=== PATIENT | male | born 1955 | race Caucasian/White ===

== ENCOUNTER 2021-06-07 13:30 | Outpatient (REF) | payer SELFPAY ==
--- NOTE | 2021-06-07 13:53 | MHC.AU.P13 ---
Hearing Instrument Maintenance Date of Visit: 06/07/21 Right Ear: Cobol Mainframe Developer: Phonak Model: AUDEO M50-13T Serial Number: [id number] Repair Warranty: 10/28/2022 Loss and Damage Warranty: 10/28/2022 Battery Size: 13 Color: SILVER CUBA Business Services Sales Representative: 2M Type of Dome: SMALL VENTED Type of Wax Guard: CERUSHIELD Dispensed By: [facility] Date of Fittin08/14/2019 Left Ear: Cobol Mainframe Developer: AUDEO Model: M50-13T Serial Number: [id number] Repair Warranty: 10/28/2022 Loss and Damage Warranty: 10/28/2022 Battery Size: 13 Color: SILVER CUBA Business Services Sales Representative: 2M Type of Dome: SMALL OPEN Type of Wax Guard: CERUSHIELD Dispensed By: [facility] Date of Fittin08/14/2019 Follow-Up Summary: Hearing aids brought in for cleaning. Hearing aids cleaned, wax guards replaced, small vented right dome and small open left dome replaced - both amplifying clearly. Recommendations: Recommendations: Hearing instrument follow-up or maintenance as needed. Diagnosis Code(s): Primary Diagnosis: H90.3 Bilateral Sensorineural Hearing Loss Signature: Provider: TERRY Martínez-HIS
== END 2021-06-07 13:31 | disposition home or self-care (01) ==
LOC: HO.HAP 13:30
PROVIDERS: Visit Provider Family Medicine
DX: Z13.89 Encounter for screening for other disorder (principal)

== ENCOUNTER 2023-01-26 10:49 | Outpatient (REF) | payer SELFPAY | END 2023-01-26 10:50 | disposition home or self-care (01) | LOC: HO.HAP 10:49 | PROVIDERS: Visit Provider Family Medicine | DX: Z13.89 Encounter for screening for other disorder (principal) ==

== ENCOUNTER 2023-01-27 12:28 | Outpatient (REF) | payer SELFPAY | END 2023-01-27 12:29 | disposition home or self-care (01) | LOC: HO.HAP 12:28 | PROVIDERS: Visit Provider Family Medicine | DX: Z46.1 Encounter for fitting and adjustment of hearing aid (principal); H90.3 Sensorineural hearing loss, bilateral | CPT/HCPCS: 92700 ==

== ENCOUNTER 2024-02-28 12:55 | Outpatient (REF) | payer SELFPAY ==
--- NOTE | 2024-02-28 14:51 | MHC.AU.HA3 ---
Hearing Instrument Follow-Up- Binaural Date of Visit: 02/28/24 Right Ear: Make, Model, Color, Serial Number: [id number] Prints And Drawings Curator Repair Warranty: 10/28/2022 Prints And Drawings Curator Loss and Damage Warranty: 10/28/2022 [facility] Service Plan: Battery Size: 13 Clinical Trial Specialist/Slim Tube: 2M Earmold/Dome/CShell/SlimTip: Type of Wax Guard: CERUSHIELD Dispensed By: [facility] Date of Fittin08/14/2019 Left Ear: Make, Model, Color, Serial Number: [id number] Prints And Drawings Curator Repair Warranty: 10/28/2022 [employer]s And Drawings Curator Loss and Damage Warranty: 10/28/2022 [facility] Service Plan: Battery Size: 13 Clinical Trial Specialist/Slim Tube: 2M Earmold/Dome/CShell/SlimTip: Type of Wax Guard: CERUSHIELD Dispensed By: [facility] Date of Fittin08/14/2019 Follow-Up Summary: Both aids dropped off. Right direct care worker is broken. Left is in need of cleaning. Cleaned and checked both aids, ran through dehumidifier. Replaced direct care worker right. Changed domes, tails, wax guards. Vacuumed drew ports. Listening check positive. Recommendations: Recommendations: Hearing instrument follow-up or maintenance as needed. Diagnosis Code(s): Primary Diagnosis: H90.3 Bilateral Sensorineural Hearing Loss Signature: Provider: Lokesh Gottlieb, CCC-A
== END 2024-02-28 12:56 | disposition home or self-care (01) ==
LOC: HO.HAP 12:55
PROVIDERS: Visit Provider Family Medicine
DX: Z46.1 Encounter for fitting and adjustment of hearing aid (principal); H90.3 Sensorineural hearing loss, bilateral
CPT/HCPCS: 92592; V5299

== ENCOUNTER 2024-04-09 09:34 | Outpatient (REF) | payer SELFPAY ==
--- NOTE | 2024-04-09 14:35 | MHC.AU.HA3 ---
Hearing Instrument Follow-Up- Binaural Date of Visit: 04/09/24 Right Ear: Pedro, Model, Color, Serial Number: Deb Landers [id number] SN: [id number] Color: Silver Gonsalez Tire Assembler Repair Warranty: 10/28/2022 Tire Assembler Loss and Damage Warranty: 10/28/2022 Battery Size: 13 Accounts Payable Representative/Slim Tube: 2M Earmold/Dome/CShell/SlimTip:Small vented dome with retention tail Type of Wax Guard: CeruShield Dispensed By: [facility] Date of Fittin08/14/2019 Left Ear: Pedro, Model, Color, Serial Number: Deb Landers [id number] SN: [id number] Color: Silver Gonsalez Tire Assembler Repair Warranty: 10/28/2022 Tire Assembler Loss and Damage Warranty: 10/28/2022 Battery Size: 13 Accounts Payable Representative/Slim Tube: 2M Earmold/Dome/CShell/SlimTip: Small open dome with retention tail Type of Wax Guard: CeruShield Dispensed By: [facility] Date of Fittin08/14/2019 Follow-Up Summary: Both hearing aids dropped off, reporting went through wash, left now has ticking sound. Confirmed via listening check. Did not resolve after cleaning, dehumidifier, and changing food safety scientist. Cleaned right hearing aid. Replaced dome, wax guard, retention tail. Vacuumed microphones. Ran through dehumidifier. Listening check demonstrated hearing aid amplifying clearly. Called Beau - Opted to send left hearing aid to [facility]. Quoted $330.00 due at chicken picker, which he approved. Sent left hearing aid to [facility]. He also inquired about programming adjustments as he does not perceive as much benefit as when first fit, especially from right hearing aid. Scheduled appointment 05/03/2024 at Beau's request to chicken picker left hearing aid from repair and make programming adjustments at that time. Also recommended updated hearing test as previous test is from 2019. Right hearing aid in Repair Drawer to hold until 05/03/2024 appointment. Recommendations: Patient will be contacted when materials have arrived. Diagnosis Code(s): Primary Diagnosis: H90.3 Bilateral Sensorineural Hearing Loss Signature: Provider: Lokesh Garcia, [facility]
== END 2024-04-09 09:35 | disposition home or self-care (01) ==
LOC: HO.HAP 09:34
PROVIDERS: Visit Provider Family Medicine
DX: Z13.89 Encounter for screening for other disorder (principal)

== ENCOUNTER 2024-04-10 09:11 | Outpatient (REF) | payer SELFPAY | END 2024-04-10 09:12 | disposition home or self-care (01) | LOC: HO.HAP 09:11 | PROVIDERS: Visit Provider Family Medicine | DX: Z13.89 Encounter for screening for other disorder (principal) ==

== ENCOUNTER 2024-05-03 07:56 | Outpatient (REF) | payer SELFPAY ==
--- NOTE | 2024-05-03 08:26 | MHC.AU.HA3 ---
Hearing Instrument Follow-Up- Binaural Date of Visit: 05/03/24 Right Ear: Pedro, Model, Color, Serial Number: Deb Landers [id number] SN: [id number] Color: Silver Gonsalez Earth Mover Repair Warranty: 10/28/2022 Earth Mover Loss and Damage Warranty: 10/28/2022 Battery Size: 13 Pensionholder Information Clerk/Slim Tube: 2M Earmold/Dome/CShell/SlimTip:Medium vented dome with retention tail Type of Wax Guard: CeruShield Dispensed By: [facility] Date of Fittin08/14/2019 Left Ear: Pedro, Model, Color, Serial Number: Deb Landers [id number] SN: [id number] Color: Silver Gonsalez Earth Mover Repair Warranty: 10/18/2024 Earth Mover Loss and Damage Warranty: 10/28/2022 Battery Size: 13 Pensionholder Information Clerk/Slim Tube: 2M Earmold/Dome/CShell/SlimTip: Small open dome with retention tail Type of Wax Guard: CeruShield Dispensed By: [facility] Date of Fittin08/14/2019 Follow-Up Summary: Picked up left repaired hearing aid. Reconnected to right hearing aid via [employer] software. Reran feedback analyzer as right feedback curve cutting out more amplification than left which may have been contributing to difference between ears as previously discussed. Changed to medium vented dome on right ear which improved feedback curve. Beau reported noticeable improvement with more balanced sound. Discussed updated hearing test and possibility of new hearing aids given age of current pair. Beau plans to inquire about his eligibility through [facility] again. Recommendations: Hearing instrument follow-up or maintenance as needed. Please contact our clinic with any questions or concerns. Diagnosis Code(s): Primary Diagnosis: H90.3 Bilateral Sensorineural Hearing Loss Signature: Provider: Lokesh Garcia, [facility]
== END 2024-05-03 07:57 | disposition home or self-care (01) ==
LOC: HO.HAP 07:56
PROVIDERS: Visit Provider Family Medicine
DX: Z46.1 Encounter for fitting and adjustment of hearing aid (principal); H90.3 Sensorineural hearing loss, bilateral
CPT/HCPCS: V5014

== ENCOUNTER 2025-03-20 14:03 | Outpatient (REF) | payer SELFPAY ==
--- OUTSIDE RECORDS SUMMARY | 2025-03-20 14:14 | XMS_ITS | Clinical Summary ---
Author Organization [facility] Address [address] [place] [address] Care Team Providers Care Coroner Technician Name Role Phone Paul Escalona Primary Care Provider [phone] Allergies Active Allergy Reactions Criticality Noted Date Comments Contrast Dye 05/26/2011 Medications No known medications Active Problems No known active problems Social History Tobacco Use Types Packs/Day Years Used Date Smoking Tobacco: Never Alcohol Use Standard Drinks/Week Comments Not Asked 0 (1 standard drink = 0.6 oz pur e alcohol) Sex and Gender Information Value Date Recorded Sex Assigned at Not on file Legal Sex Male 9:42 PM EDT Gender Identity Not on file Sexual Orientation Not on file Plan of Treatment Health Maintenance Due Date Last Done Comments Hepatitis C Screening 1955 DTaP/Tdap/Td (1 - Tdap) 1975 Pneumococcal 50+ years (1 of 1 - PCV) 2007 Zoster (Shingrix) (1 of 2) 2007 COVID-19 Vaccine (2023-2 5 season) 2024 Influenza (#1) 2025 RSV (1 - 1-dose 75+ series) 2032 Abdominal Aorta Imaging Discontinued HPV Vaccine Aged Out No longer eligi ble based on patient's age to complete this topic Hep A Aged Out No longer eligi ble based on patient's age to complete this topic Hep B Aged Out No longer eligi ble based on patient's age to complete this topic Hib Aged Out No longer eligi ble based on patient's age to complete this topic Meningococcal ACWY Aged Out No longer eligible based on patient's age to complete this topic Zoster (Zostavax) Discontinued Insurance INACTIVE [employer] [facility] Care Teams Coroner Technician Relationship Specialty Start Date End Date Paul Escalona [address] [place] [address] PCP - General 01/06/10
--- OUTSIDE RECORDS SUMMARY | 2025-03-20 14:14 | XMS_ITS | Data Portability ---
Author Organization [facility] - IP Address [address] [facility] [place] [address] Care Team Providers Care Stamping Mill Tender Name Role Phone AYO LIMA Primary Care Provider Assessment No assessment recorded. Plan of Treatment Reminders Order Date Submit Date Provider Last Modified By Organization Details Last Modified Time Details Appointments None record ed. Lab None record ed. Referral None record ed. Procedures None record ed. Surgeries None record ed. Imaging None record ed. Medication Orders None record ed. Patient TargetsNo targets recorded. Patient InstructionsNo instructions recorded. Reason for Referral None Reported. Results Created Date Observation Date Name Description Value Unit Range Abnormal Flag Note LastModifiedBy Organization Detail LastModifiedTime Result Notes None recorded. Problems Name Problem SNOMED Code Status Onset Date Resolution Date Notes Provider Name and Address Organization Details Recorded Time Screening colonoscopy Active 017 LETY turner [facility] 7 18:19:33 Problem Notes None recorded. Medical Equipment None Reported. Allergies No known drug allergies Medications Name Sig Start Date Stop Date Status Note LastModified by Organization Details LastModified Time atorvastatin 20 mg tablet active Not Available Not Available Not Available azithromycin 250 mg tablet active Not Available Not Availabl e Not Available prednisone 20 mg tablet active Not Available Not Available No t Available allopurinol 100 mg tablet active Not Available Not Availabl e Not Available benzonatate 100 mg capsule active Not Available Not Availab le Not Available lisinopril 10 mg tablet active Not Available Not Available No t Available omeprazole 20 mg capsule,delaye d release active Not Available Not Available No t Available montelukast 10 mg tablet active Not Available Not Available No t Available furosemide 20 mg tablet active Not Available Not Available No t Available levofloxacin 750 mg tablet active Not Available Not Availabl e Not Available fluticasone propionate 50 mcg/actuation nasal spray,suspensi on active Not Available Not Available Not Available sertraline 50 mg tablet active Not Available Not Available No t Available naproxen 500 mg tablet active Not Available Not Available No t Available Ventolin HFA 90 mcg/actuation aerosol inhaler active Not Available Not Available Not Available Suprep Bowel Prep Kit 17.5 gram-3.13 gram-1.6 gram oral solution Take 354 mL every day by oral route as directed for 1 day. active Not Available Not Available No t Available Breo Ellipta 200 mcg-25 mcg/dose powder for inhalation active Not Available Not Available N ot Available Fluarix Quad 2857-0391 (PF) 60 mcg (15 mcg x 4)/0.5 mL IM syringe active Not Available Not Available Not Available Vitals Date Recorded Body height Body mass index (BMI) Body weight Heart rate Systolic And Diastolic Provider Name and Address Organization Details Last Updated DateTime 07/17/2017 175.26 cm 33.7 kg/m2 145271.0 6 g 65 /min 139/84 mm[Hg] LETY Ortega [facility] [place] 7 18:18:50 Social History None recorded. Functional Status None recorded. Mental Status None recorded. Family History Nothing Reported. Medical History No medical history recorded. Past Encounters Encounter ID Performer Location Encounter Start Date Encounter Closed Date Diagnosis/Indication Diagnosis SNOMED-CT Code Diagnosis ICD10 Code Diagnosis Note [id number] Camron Yoo MD [facility] Office [address] [place] [phone] 07/17/2017 18:14:43 07/17/2017 19:12:34 Health Concerns Section Related Observation LastModified by Organization Detai ls LastModified Time None Recorded Concern Status LastModified by Organization Details LastModified Time None Recorded Advance Directives Directive None Recorded Payers Insurance Date Sequence Insurance Name Policy Number Policy Khan Covered Member ID Khan Member ID Guarantor Name 08/11/2017 1 [facility] - HEALTH NET PLAN (MEDICAID HMO) [id number] Beau Gomez [id number] Beau Gomez
--- NOTE | 2025-03-20 16:09 | MHC.AU.HA3 ---
Hearing Instrument Follow-Up- Binaural Date of Visit: 03/20/25 Right Ear: Pedro, Model, Color, Serial Number: Deb Landers [id number] SN: [id number] Color: Silver Gonsalez Institutional Research Director Repair Warranty: 10/28/2022 Institutional Research Director Loss and Damage Warranty: 10/28/2022 [facility] Service Plan: 08/14/2020 Battery Size: 13 Collar Sewer/Slim Tube: 2M Earmold/Dome/CShell/SlimTip:Medium vented dome with retention tail Type of Wax Guard: CeruShield Dispensed By: [facility] Date of Fittin08/14/2019 Left Ear: Pedro, Model, Color, Serial Number: Deb Landers [id number] SN: [id number] Color: Silver Gonsalez Institutional Research Director Repair Warranty: 10/18/2024 Institutional Research Director Loss and Damage Warranty: 10/28/2022 [facility] Service Plan: 08/14/2020 Battery Size: 13 Collar Sewer/Slim Tube: 2M Earmold/Dome/CShell/SlimTip: Small open dome with retention tail Type of Wax Guard: CeruShield Dispensed By: [facility] Date of Fittin08/14/2019 Follow-Up Summary: D/O complaint of intermittent, static . Cleaned aids, ran through dehumidifier, replaced domes and wax guards. Listening check positive. Could not recreate issue in office. Spoke carmelina Yanez who reports hearing aids have been cutting out while using his phone and his TV streamer. Recommended picking up his hearing aids and then disconnecting and re-pairing his devices from hearing aids. If problem persists, could be bluetooth antenna issue. Discussed out of warranty repair costs. Also discussed new technology due to age of current hearing aids, Beau reports he is working with [facility] to try to get new ones. He will start with getting an order for a hearing test from his PCP as he also notes feeling like the hearing aids aren't helping him as much as when he first got them and he has not had a hearing evaluation since 2019. Recommendations: Recommendations: Patient will call if problems persist. Diagnosis Code(s): Primary Diagnosis: H90.3 Bilateral Sensorineural Hearing Loss Signature: Provider: Lokesh Gottlieb, [facility]3]-A
== END 2025-03-20 14:04 | disposition home or self-care (01) ==
LOC: HO.HAP 14:03
PROVIDERS: Visit Provider Family Medicine
DX: Z13.89 Encounter for screening for other disorder (principal)

== ENCOUNTER 2025-03-21 14:08 | Outpatient (REF) | payer SELFPAY ==
--- OUTSIDE RECORDS SUMMARY | 2025-03-21 14:12 | XMS_ITS | Clinical Summary ---
Author Organization [facility] Address [address] [place] [address] Care Team Providers Care Director Dermatology Name Role Phone Paul Escalona Primary Care Provider [phone] Allergies Active Allergy Reactions Criticality Noted Date [...] this topic Zoster (Zostavax) Discontinued Insurance INACTIVE [facility] Care Teams Director Dermatology Relationship Specialty Start Date End Date Paul Escalona [address] [place] [address] PCP - General 01/06/10
== END 2025-03-21 14:09 | disposition home or self-care (01) ==
LOC: HO.SH 14:08
PROVIDERS: Visit Provider Family Medicine
DX: H90.3 Sensorineural hearing loss, bilateral (principal)
CPT/HCPCS: 92593